=== PATIENT | male | born 2000 | race Two or more races ===

== ENCOUNTER 2019-05-13 11:33 | Emergency (ER) | payer SELFPAY ==
[2019-05-13 11:45] VITALS: BP 148/85; PULSE 80; TEMP 97.5; BMI 43.7
[2019-05-13] MEDS ORDERED: KETOROLAC TROMETHAMINE 30 MG/1 ML VIAL IVPUSH ONE (12:08)
[2019-05-13] MEDS ORDERED: PANTOPRAZOLE SODIUM 40 MG VIAL IVPUSH ONE (12:08)
[2019-05-13] MEDS ORDERED: PANTOPRAZOLE SODIUM 40 MG VIAL ONE (12:17)
[2019-05-13] MEDS ORDERED: KETOROLAC TROMETHAMINE 30 MG/1 ML VIAL ONE (12:17)
[2019-05-13 12:48] LABS: BASO % 0.7 % (0-2.0); EOS % 0.3 % (0-4.5); HEMATOCRIT 41.4 % (35.4-49); MCH 29.5 pg (25.7-33.7); MCHC 33.8 g/dl (32.0-35.9); MEAN CELL VOLUME 87.3 fl (80-96); MEAN PLT VOLUME 9.8 fl (7.5-11.1); MONO % 4.7 % (3.8-10.2); NEUT % 79.3 % (42.8-82.8); PLATELET COUNT 213 K/MM3 (134-434); RBC 4.75 M/mm3 (4.00-5.60); RDW 13.3 % (11.9-15.9); WHITE BLOOD COUNT 7.2 K/mm3 (4.0-10.0)
[2019-05-13 13:13] LABS: ALBUMIN 3.6 g/dl (3.4-5.0); BILIRUBIN,TOTAL 0.3 mg/dL (0.2-1); BLOOD UREA NITROGEN 5.9 mg/dL (7-18); CALCIUM 9.6 mg/dL (8.5-10.1); CREATININE 0.9 mg/dL (0.55-1.3)
[2019-05-13 13:32] LABS: MAGNESIUM 2.1 mg/dL (1.8-2.4)
--- NOTE | 2019-05-13 13:34 | PDOC ---
History of Present Illness - General Chief Complaint: Pain Stated Complaint: VOMITING/FEELING SICK Time Seen by Provider: 05/13/19 12:01 History Source: Patient Exam Limitations: No Limitations - History of Present Illness Travel History: No Initial Comments: 05/13/19 12:29 18-year-old male presents the emergency room with complaints of epigastric cramping and burning radiating to his mid upper chest worse in the evening into nighttime. Patient states has had the symptoms intermittently for the past few days and has experienced similar symptoms in the past. Patient denies history of gastritis or GERD. Patient does state smokes marijuana and eats fast food frequently. Patient denies fever, chills, abdominal distention or change in bowel pattern. Patient does state mild nausea and an acid taste in the back of his mouth. Timing/Duration: reports: intermittent Quality: reports: mild, burning, cramping Abdominal Pain Onset Location: reports: epigastric Pain Radiation: reports: chest Activities at Onset: reports: none Aggravating Factors: improves with: None Alleviating Factors: improves with: None Past History - Travel Traveled outside of the country in the last 30 days: No Close contact w/someone who was outside of country & ill: No - Past Medical History Allergies/Adverse Reactions: Allergies Allergy/AdvReac Type Severity Reaction Status Date / Time No Known Allergies Allergy Unverified 05/13/19 11:45 COPD: No - Psycho Social/Smoking Cessation Hx Smoking History: Never smoked Abd/GI Specific PMHX - Complaint Specific PMHX GERD: No Review of Systems - Review of Systems Able to Perform ROS?: Yes Constitutional: No: Symptoms Reported HEENTM: No: Symptoms Reported Respiratory: No: Symptoms reported Cardiac (ROS): No: Symptoms Reported ABD/GI: Yes: Nausea, Indigestion, Abdominal cramping. No: Constipated, Diarrhea : No: Symptoms Reported Musculoskeletal: No: Symptoms Reported Integumentary: No: Symptoms Reported Neurological: No: Symptoms reported *Physical Exam - Vital Signs Last Vital Signs Temp Pulse Resp BP Pulse Ox 97.5 F L 80 18 148/85 98 05/13/19 11:42 05/13/19 11:42 05/13/19 11:42 05/13/19 11:42 05/13/19 11:42 - Physical Exam General Appearance: Yes: Nourished, Appropriately Dressed. No: Apparent Distress HEENT: positive: EOMI Neck: positive: Supple Respiratory/Chest: positive: Lungs Clear, Normal Breath Sounds. negative: Respiratory Distress, Accessory Muscle Use Cardiovascular: positive: Regular Rhythm, Regular Rate. negative: Murmur Gastrointestinal/Abdominal: positive: Soft, Tenderness (Epigastric /mild right epigastric) Musculoskeletal: negative: CVA Tenderness Integumentary: positive: Normal Color, Warm, Moist Neurologic: positive: Motor Strength 5/5 (Ambulatory) ED Treatment Course - LABORATORY CBC & Chemistry Diagram: 05/13/19 12:21 05/13/19 12:21 - ADDITIONAL ORDERS Additional order review: Laboratory Results 05/13/19 05/13/19 12:21 12:21 Sodium 138 Potassium 4.0 Chloride 105 Carbon Dioxide 30 Anion Gap 3 L BUN 5.9 L Creatinine 0.9 Est GFR (CKD-EPI)AfAm 143.00 Est GFR (CKD-EPI)NonAf 123.38 Random Glucose 120 H Calcium 9.6 Total Bilirubin 0.3 AST 21 ALT 34 Alkaline Phosphatase 70 Total Protein 8.0 Albumin 3.6 Lipase 109 05/13/19 12:21 RBC 4.75 MCV 87.3 MCHC 33.8 RDW 13.3 MPV 9.8 Neutrophils % 79.3 Lymphocytes % 15.0 Monocytes % 4.7 Eosinophils % 0.3 Basophils % 0.7 - Medications Given in the ED: ED Medications Discontinued Medications Generic Name Dose Route Start Last Admin Trade Name Freq PRN Reason Stop Dose Admin Ketorolac Tromethamine 30 mg 05/13/19 12:08 05/13/19 12:29 Toradol Injection - IVPUSH 05/13/19 12:09 30 mg ONCE ONE Administration Pantoprazole Sodium 40 mg 05/13/19 12:08 05/13/19 12:29 Protonix Iv IVPUSH 05/13/19 12:09 40 mg ONCE ONE Administration Medical Decision Making - Medical Decision Making 05/13/19 12:32 Chief complaint: Epigastric cramping associated burning into his mid chest worsen in the evening hours. Patient denies GI history of but does eat fast foods frequently and smokes marijuana every other day Exam: Vital signs stable epigastric tenderness with mild right epigastric tenderness plan: CBC, comp, lipase, Protonix, and Toradol ordered 05/13/19 13:33 Laboratory Tests 1105/13/19 05/13/19 12:21 12:21 12:21 WBC 7.2 Hgb 14.0 Hct 41.4 Absolute Neuts (auto) 5.7 Sodium 138 Potassium 4.0 Chloride 105 Carbon Dioxide 30 Anion Gap 3 L BUN 5.9 L Creatinine 0.9 Random Glucose 120 H Calcium 9.6 Total Bilirubin 0.3 AST 21 ALT 34 Alkaline Phosphatase 70 Total Protein 8.0 Albumin 3.6 Lipase 109 05/13/19 13:34 Patient states feeling improvement. Will discharge patient with Protonix and diet recommendations. Discharge - Discharge Information Problems reviewed: Yes Clinical Impression/Diagnosis: Epigastric pain, GERD (gastroesophageal reflux disease) Disposition: HOME - Follow up/Referral - Patient Discharge Instructions Patient Printed Discharge Instructions: DI for Gastroesophageal Reflux Disease (GERD), Gastroesophageal Reflux Disease (Alternative Therapy) Additional Instructions: Drink plenty of fluids avoid excessive caffeine. Take Protonix starting tomorrow. Please read over information regards to diet modification for acid reflux - Post Discharge Activity
== END 2019-05-13 13:58 | disposition home or self-care (01) ==
LOC: JER 11:33
PROC: 3E0333Z Introduction of Anti-inflammatory into Peripheral Vein, Percutaneous Approach (ICD-10-PCS; principal; 2019-05-13)
PROC: 3E033GC Introduction of Other Therapeutic Substance into Peripheral Vein, Percutaneous Approach (ICD-10-PCS; 2019-05-13)
DX: K21.9 Gastro-esophageal reflux disease without esophagitis (principal); F12.10 Cannabis abuse, uncomplicated
CPT/HCPCS: 36415; 80053; 83690; 83735; 85025; 99282-25